=== PATIENT | female | born 1975 | race Hispanic/Latino ===

== ENCOUNTER 2017-04-09 06:35 | Day surgery (SDC) | payer MEDICAID ==
[2017-04-09] MEDS ORDERED: DIPRIVAN 10 MG/ML IV ONE ×2 (07:28)
--- NOTE | 2017-04-09 09:02 | Anesthesia Consultation ---
Anesthesia Consult and Med Hx Date of service: 04/09/17 - Airway Anesthetic Teeth Evaluation: Good ROM Head & Neck: Adequate Mental/Hyoid Distance: Adequate Mallampati Class: Class II Intubation Access Assessment: Probably Good - Pulmonary Exam CTA: Yes - Cardiac Exam Cardiac Exam: RRR - Pre-Operative Health Status ASA Pre-Surgery Classification: ASA2 Proposed Anesthetic Plan: MAC - Pulmonary Hx Smoking: Yes - Central Nervous System Hx Psychiatric Problems: Yes - Other Systems Hx Alcohol Use: No Hx Substance Use: No Hx Cancer: No Hx Obesity: Yes
--- NOTE | 2017-04-09 09:02 | Anesthesia Day of Surgery ---
Anesthesia Day of Surgery - Day of Surgery Patient Examined: Yes Patient H&P Reviewed: Yes Patient is NPO: Yes
--- NOTE | 2017-04-09 11:20 | Post Anesthesia Evaluation ---
- Post Anesthesia Evaluation Patient Participated: Yes Airway Patent: Yes Stable Respiratory Function: Yes Nausea/Vomiting: No Temp > 96.8F: Yes Pain Manageable: Yes Adequeate Hydration: Yes Anesthesia Complications: No Block Receding Appropriately: Not Applicable Patient on Ventilator: No
--- NOTE | 2017-04-09 11:24 | Discharge Summary ---
Providers - Providers Date of discharge: 04/09/17 Attending physician: KAMILA CASTRO Hospitalization Condition: Good Procedures: egd Disposition: DC- TO HOME OR SELFCARE Core Measure Documentation - Palliative Care Palliative Care/ Comfort Measures: Not Applicable - Core Measures Any of the following diagnoses?: none Exam - Physical Exam Narrative exam: unchanged from pre-op - Constitutional Vitals: Temp Pulse Resp BP Pulse Ox 97.7 F 54 L 18 110/55 98 04/09/17 11:10 04/09/17 11:21 04/09/17 11:21 04/09/17 11:21 04/09/17 11:21 Plan Activity: no restrictions Weight Bearing Status: Full Weight Bearing Diet: regular
--- NOTE | 2017-04-09 11:30 | Operative Report ---
Operative Report Operative Report: OPERATIVE REPORT - EGD DATE 04/09/17 SURGERY: 1. Upper endoscopy, 2. gastric mucosal biopsy SURGEON: Doris Boyer M.D. PRE OP DX: dyspepsia, and GERD POST OP DX: gastritis TYPE OF ANESTHESIA: MAC. ESTIMATED BLOOD LOSS: None. COMPLICATIONS: None. SPECIMENS REMOVED: gastric mucosa FINDINGS: 1. gastritis INDICATIONS:INDICATION FOR PROCEDURE: Patient is a 41-year-old female with a long history of previous sleeve gastrectomy. She has been having significant symtpoms of GERD and dyspepsia. We evaluate her anatomy and look for pathology that may explain her symptoms. PROCEDURE DETAILS: After consent was reviewed, patient was taken back to the operating room where patient was placed in the left lateral decubitus position and a bite block was placed in the mouth. After a time-out was called, MAC anesthesia was initiated. I then passed the endoscope into her oropharynx, into her esophagus, visualized the entire esophagus, which was all within normal limits. I then visualized the stomach which was appropriately given her history of gastric sleeve. There were no signs of twisting or areas that were too narrow to easily to traverse. There was noted to be some acidic fluid in the antrum of the stomach. There was also noted to be some patchy cobble stoning of the mucosa consistent with chronic gastritis. A cold biopsy was performed and the specimen sent to pathology. The duodenum was noted to be within normal limits. I then desufflated the stomach and removed the endoscope. Patient tolerated procedure well and was transferred to recovery room in good and stable condition.
[2017-04-09 11:52] VITALS: BP 124/68
[2017-04-09] MEDS ORDERED: XYLOCAINE MPF 2% ONE (14:30)
[2017-04-09] MEDS ORDERED: NACL 0.9% 1000 ML 1,000 ML ONE (14:31)
== END 2017-04-09 06:36 | disposition home or self-care (01) ==
LOC: GIO 06:35
PROVIDERS: ATTEND Surgery
DX: K29.50 Unspecified chronic gastritis without bleeding (principal); K21.9 Gastro-esophageal reflux disease without esophagitis; F32.9 Major depressive disorder, single episode, unspecified; M19.90 Unspecified osteoarthritis, unspecified site; Z98.890 Other specified postprocedural states; Z83.3 Family history of diabetes mellitus; F17.210 Nicotine dependence, cigarettes, uncomplicated; E66.01 Morbid (severe) obesity due to excess calories; Z68.43 Body mass index [BMI] 50.0-59.9, adult
CPT/HCPCS: 43239; 88305; 88342; J2704; J7030